=== PATIENT | female | born 1980 | race African-American/Black ===

== ENCOUNTER → 2017-05-28 | Day surgery (SDC) | payer OTHER ==
[~2017-05-28] VITALS: Ht 167.6 cm; Wt 86.7 kg
== END | disposition home or self-care (01) ==
LOC: FAS 08:50
DX: K52.9 Noninfective gastroenteritis and colitis, unspecified (principal); I10 Essential (primary) hypertension; E03.9 Hypothyroidism, unspecified; N83.202 Unspecified ovarian cyst, left side; Z98.51 Tubal ligation status; Z91.013 Allergy to seafood; Z90.89 Acquired absence of other organs; Z79.899 Other long term (current) drug therapy
CPT/HCPCS: 84703; 88305; J2704